=== PATIENT | male | born 1955 | race Caucasian/White ===

== ENCOUNTER 2019-03-30 05:43 | Emergency (ER) | payer MEDICARE ==
[~2019-03-30] VITALS: Ht 172.7 cm; Wt 93.9 kg
[2019-03-30 06:01] LABS: BASOPHILS ABSOLUTE AUTO 0.06 K/mm3 (0.00-0.23); BASOPHILS PERCENT AUTO 1 % (0-2); EOSINOPHILS ABSOLUTE AUTO 0.04 K/mm3 (0.00-0.68); EOSINOPHILS PERCENT AUTO 1 % (0-6); Hematocrit 39.1 % (37.0-53.0); Hemoglobin 13.3 g/dL (13.5-17.5); IMMATURE GRAN ABSOLUTE AUTO 0.02 K/mm3 (0.00-0.10); IMMATURE GRAN PERCENT AUTO 0 % (0-1); LYMPHOCYTES ABSOLUTE AUTO 1.91 K/mm3 (0.84-5.20); LYMPHOCYTES PERCENT AUTO 30 % (21-46); MONOCYTES ABSOLUTE AUTO 0.86 K/mm3 (0.16-1.47); MONOCYTES PERCENT AUTO 14 % (4-13); Mean Corpuscular HGB 29.6 pg (26.0-34.0); Mean Corpuscular Volume 87 fL (80-100); Mean Platelet Volume 11.9 fL (9.1-12.4); NEUTROPHILS ABSOLUTE AUTO 3.46 K/mm3 (1.96-9.15); NEUTROPHILS PERCENT AUTO 55 % (41-73); Platelet Count 172 K/mm3 (150-400); RDW Coefficient Variation 12.1 % (11.7-14.2); RDW Standard Deviation 38.9 fL (35.1-46.3); Red Blood Cell Count 4.49 M/mm3 (4.30-5.90); White Blood Cell Count 6.35 K/mm3 (4.00-11.30)
[2019-03-30] MEDS ORDERED: Tylenol325 MG PO (06:03)
[2019-03-30] MEDS ORDERED: Aspir 8181 MG PO (06:03)
[2019-03-30] MEDS ORDERED: DOCU100 PO (06:03)
[2019-03-30] MEDS ORDERED: CLOP75 PO (06:03)
[2019-03-30] MEDS ORDERED: FURO20 PO (06:03)
[2019-03-30] MEDS ORDERED: LISI20 PO (06:04)
[2019-03-30] MEDS ORDERED: Hair, Skin & N1 EACH PO (06:04)
[2019-03-30] MEDS ORDERED: Lopressor 25 mg25 MG PO (06:04)
[2019-03-30] MEDS ORDERED: SENNA PO (06:05)
[2019-03-30] MEDS ORDERED: POTA10T PO (06:05)
[2019-03-30] MEDS ORDERED: Pravachol40 MG PO (06:05)
[2019-03-30 06:20] LABS: Alanine Aminotransfer (ALT/SGP 29 U/L (12-78); Albumin, Blood 3.7 g/dL (3.4-5.0); Albumin/Globulin Ratio 1.1 (0.8-1.8); Alk Phos 67 U/L (50-136); Anion Gap 5 mmol/L (6-16); Aspartate Aminotrans (AST/SGOT 26 U/L (12-37); Bilirubin, Total 1.4 mg/dL (0.1-1.0); Blood Urea Nitrogen 18 mg/dL (8-24); Bun/Creatinine Ratio 20.9 (12.0-20.0); CO2, Blood 29 mmol/L (21-32); Calcium, Blood 8.9 mg/dL (8.5-10.1); Chloride, Blood 99 mmol/L (98-108); Creatinine, Blood 0.86 mg/dL (0.60-1.20); Globulin, Blood 3.3 g/dL (2.2-4.0); Glomerular Filtration Rate >60 (60-); Glucose, Blood 92 mg/dL (70-99); Potassium, Blood 3.6 mmol/L (3.5-5.5); Sodium, Blood 133 mmol/L (136-145)
== END 2019-03-30 10:43 | disposition home or self-care (01) ==
LOC: ER 05:43
PROVIDERS: Emergency Medicine
DX: F41.9 Anxiety disorder, unspecified (principal); R07.89 Other chest pain; G47.00 Insomnia, unspecified; I25.10 Atherosclerotic heart disease of native coronary artery without angina pectoris; F32.9 Major depressive disorder, single episode, unspecified; F43.10 Post-traumatic stress disorder, unspecified; Z85.038 Personal history of other malignant neoplasm of large intestine; Z88.8 Allergy status to other drugs, medicaments and biological substances; Z79.899 Other long term (current) drug therapy; Z79.82 Long term (current) use of aspirin; Z79.02 Long term (current) use of antithrombotics/antiplatelets
CPT/HCPCS: 71046; 80053; 84484; 85025; 93005; 93010; 99285-25; J1200

== ENCOUNTER 2019-04-05 04:18 | Inpatient (IN) | payer MEDICARE ==
[~2019-04-05] VITALS: Ht 172.7 cm; Wt 94.6 kg
[~2019-04-05 04:18] MED LIST: Aspir 8181 MG PO; CLOP75 PO; DOCU100 PO; FURO20 PO; Hair, Skin & N1 EACH PO; LISI20 PO; Lopressor 25 mg25 MG PO; POTA10T PO; Pravachol40 MG PO; SENNA PO; Tylenol325 MG PO
[2019-04-05 04:30] LABS: Chloride (POC) 97 mmol/L (98-108); Creatinine (POC) 1.1 mg/dL (0.8-1.3); Glucose (ISTAT POC) 108 mg/dL (70-99); Hemoglobin (POC) 13.9 g/dL (13.5-17.5); Sodium (POC) 136 mmol/L (135-148); Total CO2 (POC) 30 mmol/L (21-32)
[2019-04-05 04:31] LABS: BASOPHILS ABSOLUTE AUTO 0.04 K/mm3 (0.00-0.23); BASOPHILS PERCENT AUTO 1 % (0-2); EOSINOPHILS ABSOLUTE AUTO 0.06 K/mm3 (0.00-0.68); EOSINOPHILS PERCENT AUTO 1 % (0-6); Hematocrit 41.7 % (37.0-53.0); Hemoglobin 13.7 g/dL (13.5-17.5); IMMATURE GRAN ABSOLUTE AUTO 0.02 K/mm3 (0.00-0.10); IMMATURE GRAN PERCENT AUTO 0 % (0-1); LYMPHOCYTES ABSOLUTE AUTO 1.86 K/mm3 (0.84-5.20); LYMPHOCYTES PERCENT AUTO 29 % (21-46); MONOCYTES ABSOLUTE AUTO 0.86 K/mm3 (0.16-1.47); MONOCYTES PERCENT AUTO 14 % (4-13); Mean Corpuscular HGB 29.5 pg (26.0-34.0); Mean Corpuscular HGB Conc 32.9 g/dL (31.5-36.5); Mean Corpuscular Volume 90 fL (80-100); Mean Platelet Volume 11.9 fL (9.1-12.4); NEUTROPHILS PERCENT AUTO 55 % (41-73); Platelet Count 200 K/mm3 (150-400); RDW Coefficient Variation 12.4 % (11.7-14.2); RDW Standard Deviation 40.5 fL (35.1-46.3); Red Blood Cell Count 4.64 M/mm3 (4.30-5.90); White Blood Cell Count 6.34 K/mm3 (4.00-11.30)
[2019-04-05] MEDS ORDERED: DIAZ10 PO (04:34)
[2019-04-05 04:51] LABS: Alanine Aminotransfer (ALT/SGP 29 U/L (12-78); Albumin, Blood 3.6 g/dL (3.4-5.0); Alk Phos 67 U/L (50-136); Anion Gap 6 mmol/L (6-16); Aspartate Aminotrans (AST/SGOT 24 U/L (12-37); Bilirubin, Total 0.9 mg/dL (0.1-1.0); Blood Urea Nitrogen 21 mg/dL (8-24); Bun/Creatinine Ratio 18.6 (12.0-20.0); CO2, Blood 29 mmol/L (21-32); Calcium, Blood 8.9 mg/dL (8.5-10.1); Chloride, Blood 102 mmol/L (98-108); Creatinine, Blood 1.13 mg/dL (0.60-1.20); Globulin, Blood 3.6 g/dL (2.2-4.0); Glomerular Filtration Rate >60 (60-); Glucose, Blood 104 mg/dL (70-99); Potassium, Blood 4.1 mmol/L (3.5-5.5); Sodium, Blood 137 mmol/L (136-145); Total Protein, Blood 7.2 g/dL (6.4-8.2); Troponin I 0.021 ng/mL (0.000-0.040)
[2019-04-05 06:49] LABS: Cholesterol 174 mg/dL (50-200); HDL Cholesterol 58 mg/dL (>39); LDL/HDL RATIO 1.6; Low Density Lipoprotein Chol 94 mg/dL (0-110); Triglycerides 109 mg/dL (30-160); Very Low Density Lipoprot Chol 21 mg/dL (6-32)
--- NOTE | 2019-04-05 11:00 | NUR ---
PT STATES FEELS SAME WEAKNESS BEFORE, BUT IT CONTINUES. PT STATES SOME SWEATINESS., LIGHTLY NOTICABLE ON FORARMS. TURNED HEAT DOWN SOME. PT AMBULATED TO BATHROOM TO URINATE. DID WELL. SBA. FWW. VSS, TELE CONTINUES AFIB IN LOW 60'S. PT ADMITS TO LIGHT MIDSTERNAL PAIN. IS REPRODUCABLE WITH RUBBING TO INTERCONSTAL MUSCLES IN MID CHEST. PT STATES MIGHT EVEN BE STOMACH ACID. SPOKE TO DR CASH. ORDERS FOR GI COCTAIL Q6P. WILL ADMIN WHEN HERE FROM PHARMACY.
--- NOTE | 2019-04-05 11:00 | NUR ---
ASKED PT THIS AM RE WH[facility] AT [facility]. PT IS NOT WANTING TO DISCUSS. GAVE A LOT OF WELL, DONT WANT TO DISCUSS AT THIS TIME. HAS BANDAIDE ON LEFT WRIST. DID NOT WANT TO TAKE OFF SMALL BANDAGE. CDI AT THIS TIME. PT REMAINS ANXIOUS.
[2019-04-05] MEDS ORDERED: BACI500TO TOP (11:19)
[2019-04-05] MEDS ORDERED: DULO60 PO (11:23)
[2019-04-05] MEDS ORDERED: GABA300 PO (11:24)
[2019-04-05] MEDS ORDERED: MAGNESIUM OXID500 MG PO (11:25)
[2019-04-05] MEDS ORDERED: MELA3 PO (11:26)
[2019-04-05] MEDS ORDERED: QUET25 PO (11:30)
[2019-04-05] MEDS ORDERED: SENN187 PO (11:31)
[2019-04-05] MEDS ORDERED: TRIA15CR3 TOP (11:32)
--- NOTE | 2019-04-05 11:37 | NUR ---
SOME NEW MEDS FROM [facility] LIST , IS UPDATED IN MED REC. DR HALL.
--- NOTE | 2019-04-05 12:19 | NUR ---
PT TROPONIN LEVELS BACK. INCREASE NOTED. SPOKE TO DR CASH. NO ORDERS AT THIS TIME.
--- NOTE | 2019-04-05 12:26 | NUR ---
PT STATES THE GI COCTAIL HELPED SOME. NOTIFIED IN [facility].
--- NOTE | 2019-04-05 14:09 | NUR ---
Upon receiving an admit referral for spiritual care, I visited patient. Patient openly shares about his family unit complications, his suicide attempt and his current medical conditions. Patient also shares about his faith beliefs and places where he finds hope and inspiration. I listen empathically, normalize patient experience, explore faith beliefs and sources of dignity and meaning and provide companionship. Patient responds well and voices appreciation for the visit.
--- NOTE | 2019-04-05 14:23 | NUR ---
PT STATES NO REAL PAIN, IS ANX. REQUEST IF CAN HAVE ANYTHING. CALLING
--- NOTE | 2019-04-05 18:27 | NUR ---
PT PLEASANT COOP TODAY. PT C/O ANXIETY. PT HAD EPISODE OF PN THAT HE THOUGHT MIGHT BE HEARTBURN. GI COCTAIL GIVEN. PT STATED HELPED SOME. PT HAD SOME ANXIETY TODAY. MEDS GIVEN, AND APPEARS MORE RELAXED. DR ALCAZAR CAME TO SEE PT FOR CARDIAC. CHEST PN. PT DENIES AT THIS TIME. DR TO DO ANGIO TOMORROW EXPECTING AM. ORDERS PLACED FOR NPO MIDNITE, HOLD LOVENOX FOR TOMORROW. EXPECT RECOVERY FROM ANGIO IN PCU. BED IN LOW POSITION, CALL LITE IN REACH, CALLS APPROP
--- NOTE | 2019-04-06 06:20 | NUR ---
SHIFT SUMMARY NO ACUTE EVENTS OVERNIGHT. PATIENT SLEPT THROUGHOUT NIGHT. TELEMETRY CALLED ON 3 OCCASIONS STATING THAT PATIENT HAD 3.1-3.2 SECOND PAUSES. NOTIFIED KOHINOOR OPERATOR HOSPITALIST. PATIENT ASYMPTOMATIC. AAOX4. UP INDEPENDENT IN ROOM. 2L NC FOR COMFORT. WILL CONTINUE TO MONITOR.
--- NOTE | 2019-04-06 08:25 | NUR ---
PATIENT DID NOT EAT BREAKFAST THIS SHIFT DUE TO BEING NPO AT THIS TIME. RN NOTIFIED.
[2019-04-06 08:46] LABS: BASOPHILS ABSOLUTE AUTO 0.03 K/mm3 (0.00-0.23); BASOPHILS PERCENT AUTO 0 % (0-2); EOSINOPHILS ABSOLUTE AUTO 0.03 K/mm3 (0.00-0.68); EOSINOPHILS PERCENT AUTO 0 % (0-6); Hemoglobin 14.7 g/dL (13.5-17.5); IMMATURE GRAN ABSOLUTE AUTO 0.03 K/mm3 (0.00-0.10); IMMATURE GRAN PERCENT AUTO 0 % (0-1); LYMPHOCYTES ABSOLUTE AUTO 1.37 K/mm3 (0.84-5.20); LYMPHOCYTES PERCENT AUTO 17 % (21-46); MONOCYTES PERCENT AUTO 9 % (4-13); Mean Corpuscular HGB 29.2 pg (26.0-34.0); Mean Corpuscular HGB Conc 32.7 g/dL (31.5-36.5); Mean Corpuscular Volume 89 fL (80-100); Mean Platelet Volume 11.7 fL (9.1-12.4); NEUTROPHILS ABSOLUTE AUTO 5.77 K/mm3 (1.96-9.15); NEUTROPHILS PERCENT AUTO 73 % (41-73); Platelet Count 206 K/mm3 (150-400); RDW Coefficient Variation 12.4 % (11.7-14.2); RDW Standard Deviation 40.7 fL (35.1-46.3); Red Blood Cell Count 5.04 M/mm3 (4.30-5.90); White Blood Cell Count 7.93 K/mm3 (4.00-11.30)
[2019-04-06 09:01] LABS: Anion Gap 3 mmol/L (6-16); Blood Urea Nitrogen 16 mg/dL (8-24); Bun/Creatinine Ratio 15.5 (12.0-20.0); CO2, Blood 32 mmol/L (21-32); Calcium, Blood 8.7 mg/dL (8.5-10.1); Chloride, Blood 102 mmol/L (98-108); Creatinine, Blood 1.03 mg/dL (0.60-1.20); Glomerular Filtration Rate >60 (60-); Glucose, Blood 101 mg/dL (70-99); Potassium, Blood 4.8 mmol/L (3.5-5.5); Sodium, Blood 137 mmol/L (136-145)
--- NOTE | 2019-04-06 10:06 | NUR ---
PT HAS BEEN A/O X 4 THIS MORNING WITH NO C/O PAIN. HE DENIES CHEST PAIN OR SOB. HE HAS O2 @ 2 LPM ON FOR COMFORT. Sighter REPORTS A RHYTHM OF A-FIB @ 85. PT IS UP WITH A FWW AB SUNNI IN HIS ROOM. HE IS SCHEDULED FOR AN ANGIOGRAM THIS MORNING AND IS PLEASANT AND COOPERATIVE WITH HIS CARE. HE HAS BEEN NPO SINCE MIDNIGHT PER COMMERCIAL PLUMBER REPORT. NURSES FROM THE [facility] CAME TO TRANSPORT PT AND HE WILL GO TO PCU 6 AFTER HIS PROCEDURE.
--- NOTE | 2019-04-06 10:22 | NUR ---
Face to face report received from Demarco Edwards at this time. The pt has gone for an angiogram in the heart center.
--- NOTE | 2019-04-06 12:45 | NUR ---
ARRIVAL TO UNIT PT ARRIVED VIA GURNEY FROM THE [facility]ART CENTER AT 1230 HRS, POST ANGIOGRAM PROCEDURE. ANGIO SITE TO RT GROIN WNL COVERED BY TRANSPARENT DRESSING WITH JUANPABLO PAD VISIBLE. NO NEW SWELLING, REDNESS TO SITE, PT DENIES TENDRNESS. VITALS SIGNS TAKEN PER UNIT PROTOCOL, SITE REMAINS WNL. PT C/O ANXIOUS, WILL MEDICATE PER EMAR.
--- NOTE | 2019-04-06 13:16 | NUR ---
Pt. is doing fine in bed resting.
[2019-04-06] MEDS ORDERED: Nitroglycerin0.4 MG SL (16:27)
--- NOTE | 2019-04-06 17:00 | NUR ---
Dr. Wallis here to see the patient; the pt is requesting a second opinion from a different diesel engine engineer; however, there is none available in the hospital at this time. Dr. Wallis speaking with Dr. Alonso over the phone at this time. Call from the AOD with regard to transferring the patient back to the [facility], as he was a psychiatric inpatient when he was transferred to [facility] for chest pain. AOKim states that the [place] hospitalist says that they don't want to receive him until tomorrow because he had an angiogram today with a groin site. I expained to the AOD that the pt is 5 hours post sheath removal and the groin site is completely recovered, and that he is actually able to go home, except that he was an inpatient at [facility] so we are asking about transferring him back for his psychiatric inpatient. I asked the AOD to explain to the hospitalist that the pt was simply an angiogram without any interventions, no PCI. In the case of angiogram with PCI, he would be kept overnight and discharged tomorrow. RANJIT said that he would speak with his hospitalist and get back to us.
--- NOTE | 2019-04-06 17:15 | NUR ---
DOCTOR TO ROOM DOCTOR VICK VISITED PATIENT IN HIS ROOM, PATIENT ASKED FOR PERSONAL CONSULT
--- NOTE | 2019-04-06 18:08 | NUR ---
Call from [place] AOD; states that Dr. John (hospitalist) does not accept the pt for transfer this evening. Decision to transfer to [facility] for continued psychiatric treatment will be delayed until tomorrow, and the process will be restarted first thing in the morning.
--- NOTE | 2019-04-06 19:29 | NUR ---
SHIFT SUMMARY ASSUMED CARE OF PATIENT POST ANGIOGRAM AT AROUND 1230, PATIENT ARRIVED VIA GURNEY FROM [facility] [place], ALERT AND ORIENTED, TRANSFERRED TO UNIT HOSP BED BY SLIP SHEET WITH HELP OF 4 STAFF. ANGIO SITE AT ARRIVAL INTACT, NO BLEEDING, NO EXTRA REDNESS, NO SWELLING, NO TENDERNESS BEYOND NORMAL LIMITS. PATIENT CARE MANAGED VIA UNIT PROTOCOL, ALL VITAL SIGNS STABLE AND SITE REMAINED W/IN NORMAL LIMITS THE SHIFT PROGRESSED. AT 4.5 HOURS POST PROCEDURE PATIENT WAS ABLE TO STAND WITHOUT INCIDENT, AND IS CLEARED TO MOVE ABOUT ROOM AT WILL. EXPECT DISCHARGE TOMORROW. PATIENT C/O ANXIETY 3 TIMES THIS SHIFT, AND WAS MEDICATED FOR EACH PER EMAR AND MD ORDER TO THE PATIENT'S STATED SATISFACTION. PASSED REPORT AND CARE TO ONCOMING SHIFT AT 1900, PT AWAKE SITTING AT SIDE OF BED.
--- NOTE | 2019-04-07 06:18 | NUR ---
SHIFT SUMMARY PT HAS REMAINED AOX4 THROUGHOUT SHIFT. VSS. PLEASANT AND COOPERATIVE WITH CARE. SOME ANXIETY NOTED WITH CURRENT DIAGNOSIS OF A-FIB, REPORTS CONCERN THAT HE IS NOT BEING CARDIOVERTED. PT EDUCATED EXTENSIVELY ON RATIONALLE BEHIND DECISION TO NOT PERFORM CARDIOVERSION. PT CONTINUES TO AMBULATE WITH STANDBY ASSIST W/FWW. R GROIN SITE HAS REMAINED UNCHANGED THROUGHOUT THE NIGHT, THOUGH PATIENT DOES CONTINUE TO REPORT SOME DISCOMFORT TO PUNCTURE SITE. PT DID REPORT SOME DISCOMFORT TO R SHOULDER AND NECK LAST NIGHT THAT DECREASED WITH ORDERED MEDICATIONS- NO CHANGES NOTED TO ECG. HEART RHYTHM REMAINS IN ATRIAL FIBRILLATION WITH A RATE IN THE 90s- HR INCREASES WITH ACTIVITY. PT ABLE TO TOTER RESTROOM AND BATHE HIMSELF LAST NIGHT WITH MINIMAL DIFFICULTY. NO OTHER CHANGES NOTED FROM INTIAL ASSESSMENT. WILL CONTINUE TO MONITOR AND REPORT TO ONCOMING SHIFT RN. BED IN LOW POSITION, CALL LIGHT IN REACH.
--- NOTE | 2019-04-07 07:37 | NUR ---
ASSUMED CARE: PT RESTING IN BED AT THIS TIME. NO ACUTE NEEDS OR CONCERNS.
[2019-04-07 08:44] LABS: BASOPHILS ABSOLUTE AUTO 0.06 K/mm3 (0.00-0.23); BASOPHILS PERCENT AUTO 1 % (0-2); EOSINOPHILS ABSOLUTE AUTO 0.04 K/mm3 (0.00-0.68); EOSINOPHILS PERCENT AUTO 1 % (0-6); Hematocrit 49.3 % (37.0-53.0); Hemoglobin 16.4 g/dL (13.5-17.5); IMMATURE GRAN ABSOLUTE AUTO 0.03 K/mm3 (0.00-0.10); IMMATURE GRAN PERCENT AUTO 0 % (0-1); LYMPHOCYTES PERCENT AUTO 22 % (21-46); MONOCYTES ABSOLUTE AUTO 0.81 K/mm3 (0.16-1.47); MONOCYTES PERCENT AUTO 11 % (4-13); Mean Corpuscular HGB 29.6 pg (26.0-34.0); Mean Corpuscular HGB Conc 33.3 g/dL (31.5-36.5); Mean Corpuscular Volume 89 fL (80-100); Mean Platelet Volume 11.6 fL (9.1-12.4); NEUTROPHILS ABSOLUTE AUTO 5.08 K/mm3 (1.96-9.15); NEUTROPHILS PERCENT AUTO 66 % (41-73); Platelet Count 219 K/mm3 (150-400); RDW Coefficient Variation 12.3 % (11.7-14.2); RDW Standard Deviation 40.9 fL (35.1-46.3); Red Blood Cell Count 5.54 M/mm3 (4.30-5.90); White Blood Cell Count 7.72 K/mm3 (4.00-11.30)
[2019-04-07 09:01] LABS: Anion Gap 5 mmol/L (6-16); Blood Urea Nitrogen 17 mg/dL (8-24); Bun/Creatinine Ratio 16.8 (12.0-20.0); CO2, Blood 32 mmol/L (21-32); Calcium, Blood 9.1 mg/dL (8.5-10.1); Chloride, Blood 100 mmol/L (98-108); Creatinine, Blood 1.01 mg/dL (0.60-1.20); Glomerular Filtration Rate >60 (60-); Glucose, Blood 112 mg/dL (70-99); Potassium, Blood 4.4 mmol/L (3.5-5.5); Sodium, Blood 137 mmol/L (136-145)
--- NOTE | 2019-04-07 12:33 | NUR ---
DR GARZA CAME TO SEE PT AND DECIDED TO HOLD DC SO HE COULD TRY TO CONVERT PT FROM AFIB. WANTS TO START PT ON RATE MED AND ANTICOAGULATION. [facility]PITALIST HAVE BEEN NOTIFIED OF HOLD OF DISCHARGE. ANNEMARIE CALLED TO GET GI RECORDS. DR GARZA STATES HE WILL CONTACT [employer] INSTRUCTOR BUILDING SERVICES ENGINEER FOR WEEKEND. POWERHOUSE ELECTRICIAN AWARE
--- NOTE | 2019-04-07 18:32 | NUR ---
SHIFT SUMMARY: PT RESTING QUIETLY IN BED AT THIS TIME. REMAINS IN AFIB AFTER FIRST DOSE OF SATALOL. DR GARZA AWARE, EXPECTS A FEW MORE DOSES NEEDED BEFORE IT CONVERTS HIM. DR AWARE THAT RECORDS REGARDING GI BLEED AND CARDIOLOGY ARRIVED. STATES HE WILL REVIEW IN AM. PLAN IS FOR POSSIBLE PETRA IF SATALOL DOES NOT IMPROVE AFIB. NO FURTHER NEEDS OR CONCERNS AT THIS TIME.
--- NOTE | 2019-04-08 06:26 | NUR ---
SHIFT SUMMARY PT HAS REMAINED AOX4 THROUHGOUT SHIFT. VSS. PLEASANT AND COOPERATIVE WITH CARE. HEART RHYTHM REMAINS IN A-FIB WITH A RATE CONTROLLED IN THE 80-90s. PT WITH NO REPORTS OF CHEST PAINS OR DYSPNEA. DOES REPORT SOME LIGHTHEADEDNESS WITH AMBULATION WHILE IN A-FIB. PT SEEN BY DR GARZA YESTERDAY WHO STARTED ANTIARRHYTHMIC MEDICATION AND XARELTO TO SEE IF PT WOULD CONVERT. IF NO SUCCESS, MAY CONSIDER PETRA AND CARDIOVERSION. PT EDUCATED ON THIS PLAN OF CARE MULTIPLE TIMES THROUGHOUT SHIFT, CONTINUES TO ASK WHAT TIME PROVIDER WILL BE DOING PROCEDURE TODAY. PT HAS BEEN NPO SINCE MIDNIGHT DUE TO POSSIBILITY OF PETRA AND CARDIOVERSION THIS AM. PREVIOUS SHIFT RN STATED HE WAS TO BE NPO @ [place]. PT CONTINUES TO HAVE ANXIETY ABOUT CURRENT HEALTH STATUS AND A-FIB, PT DID NOT WANT ORDERED MEDICATION SEROQUEL FOR ANXIETY DUE TO "HOW IT MAKES HIM FEEL". PT PROVIDED WITH WRITTEN INFORMATION ON NEW MEDICATIONS. NO OTHER CHANGES NOTED FROM INITIAL ASSESSMENT. WILL CONTINUE TO MOINTOR AND REPORT TO ONCOMING SHIFT RN. BED IN LOW POSITION, CALL LIGHT IN REACH.
[2019-04-08 08:19] LABS: BASOPHILS ABSOLUTE AUTO 0.03 K/mm3 (0.00-0.23); BASOPHILS PERCENT AUTO 1 % (0-2); EOSINOPHILS ABSOLUTE AUTO 0.07 K/mm3 (0.00-0.68); EOSINOPHILS PERCENT AUTO 1 % (0-6); Hematocrit 44.4 % (37.0-53.0); Hemoglobin 14.7 g/dL (13.5-17.5); IMMATURE GRAN ABSOLUTE AUTO 0.01 K/mm3 (0.00-0.10); IMMATURE GRAN PERCENT AUTO 0 % (0-1); LYMPHOCYTES ABSOLUTE AUTO 1.43 K/mm3 (0.84-5.20); LYMPHOCYTES PERCENT AUTO 24 % (21-46); MONOCYTES ABSOLUTE AUTO 0.76 K/mm3 (0.16-1.47); MONOCYTES PERCENT AUTO 13 % (4-13); Mean Corpuscular HGB 29.5 pg (26.0-34.0); Mean Corpuscular HGB Conc 33.1 g/dL (31.5-36.5); Mean Corpuscular Volume 89 fL (80-100); Mean Platelet Volume 11.5 fL (9.1-12.4); NEUTROPHILS ABSOLUTE AUTO 3.68 K/mm3 (1.96-9.15); NEUTROPHILS PERCENT AUTO 62 % (41-73); Platelet Count 202 K/mm3 (150-400); RDW Coefficient Variation 12.5 % (11.7-14.2); RDW Standard Deviation 40.8 fL (35.1-46.3); Red Blood Cell Count 4.99 M/mm3 (4.30-5.90); White Blood Cell Count 5.98 K/mm3 (4.00-11.30)
[2019-04-08 08:37] LABS: Anion Gap 3 mmol/L (6-16); Blood Urea Nitrogen 20 mg/dL (8-24); CO2, Blood 32 mmol/L (21-32); Calcium, Blood 8.5 mg/dL (8.5-10.1); Chloride, Blood 101 mmol/L (98-108); Creatinine, Blood 1.05 mg/dL (0.60-1.20); Glomerular Filtration Rate >60 (60-); Glucose, Blood 101 mg/dL (70-99); Potassium, Blood 4.1 mmol/L (3.5-5.5); Sodium, Blood 136 mmol/L (136-145)
--- NOTE | 2019-04-08 10:01 | NUR ---
PT HAD 7 BEAT RUN VTACH NOTIFIED DR ARCINIEGA AND DR GARZA.
--- NOTE | 2019-04-08 18:52 | NUR ---
SUMMARY NO ACUTE CHANGES T/O SHIFT. MEDICATED PT PER ORDERS FOR PAIN. PLAN TO CONTINUE SOTALOL. IF DOES NOT CONVERT TO SR, TENTATIVE PLAN FOR PETRA W/CARDIOVERT ON WEDNESDAY AM W/DR GARZA. USES CALL LIGHT APPROPRIATELY.
[2019-04-09 04:17] LABS: BASOPHILS ABSOLUTE AUTO 0.05 K/mm3 (0.00-0.23); BASOPHILS PERCENT AUTO 1 % (0-2); EOSINOPHILS ABSOLUTE AUTO 0.11 K/mm3 (0.00-0.68); EOSINOPHILS PERCENT AUTO 2 % (0-6); Hematocrit 42.1 % (37.0-53.0); Hemoglobin 13.7 g/dL (13.5-17.5); IMMATURE GRAN ABSOLUTE AUTO 0.02 K/mm3 (0.00-0.10); IMMATURE GRAN PERCENT AUTO 0 % (0-1); LYMPHOCYTES ABSOLUTE AUTO 2.56 K/mm3 (0.84-5.20); LYMPHOCYTES PERCENT AUTO 36 % (21-46); MONOCYTES ABSOLUTE AUTO 0.95 K/mm3 (0.16-1.47); MONOCYTES PERCENT AUTO 13 % (4-13); Mean Corpuscular HGB 29.1 pg (26.0-34.0); Mean Corpuscular HGB Conc 32.5 g/dL (31.5-36.5); Mean Corpuscular Volume 89 fL (80-100); Mean Platelet Volume 12.3 fL (9.1-12.4); NEUTROPHILS ABSOLUTE AUTO 3.45 K/mm3 (1.96-9.15); NEUTROPHILS PERCENT AUTO 48 % (41-73); Platelet Count 207 K/mm3 (150-400); RDW Coefficient Variation 12.4 % (11.7-14.2); RDW Standard Deviation 40.5 fL (35.1-46.3); Red Blood Cell Count 4.71 M/mm3 (4.30-5.90); White Blood Cell Count 7.14 K/mm3 (4.00-11.30)
[2019-04-09 04:43] LABS: Anion Gap 3 mmol/L (6-16); Blood Urea Nitrogen 21 mg/dL (8-24); Bun/Creatinine Ratio 18.3 (12.0-20.0); CO2, Blood 31 mmol/L (21-32); Calcium, Blood 8.2 mg/dL (8.5-10.1); Chloride, Blood 102 mmol/L (98-108); Creatinine, Blood 1.15 mg/dL (0.60-1.20); Glomerular Filtration Rate >60 (60-); Glucose, Blood 102 mg/dL (70-99); Potassium, Blood 3.8 mmol/L (3.5-5.5); Sodium, Blood 136 mmol/L (136-145)
--- NOTE | 2019-04-09 05:37 | NUR ---
SHIFT SUMMARY PT HAS REMAINED AOX4 THROUGHOUT SHIFT. VSS. PLEASANT AND COOPERATIVE WITH CARE. HEART RHYTHM REMAINS IN A-FIB WITH A RATE RANGING IN THE 50-60s. PT WITH 3 PAUSES, ALL APPROXIMATELY LASTING 3 SECONDS- PT SLEEPING AT THE TIME WITH NORMAL BREATHING PATTERNS. PT WITH ONE 10-BEAT RUN OF V-TACH THIS AM WHILE SLEEPING. NO SIGNS OF DISTRESS, VITAL SIGNS REMAINED STABLE. PT HAS RESTED WELL THROUGHOUT THE NIGHT, WAKING EASILY FOR CARE. DENIES CHEST PAIN. MEDICATED MULTIPLE TIMES FOR PAIN TO R SHOULDER AND NECK THAT DECREASED WITH ORDERED MEDICATIONS. PT CONTINUES TO AMBULATE INDEPENDENTLY IN THE ROOM WITHOUG DIFFICULTY. NO OTHER CHANGES NOTED FROM INITIAL ASSESSMENT. WILL CONTINUE TO MONITOR AND REPORT TO ONCOMING SHIFT RN. BED IN LOW POSITION, CALL LIGHT IN REACH.
--- NOTE | 2019-04-09 07:30 | NUR ---
ASSUMED CARE: PT RESTING QUIETLY AT THIS TIME. DENIES NEEDS OR CONCERNS.
--- NOTE | 2019-04-09 09:30 | NUR ---
DR GARZA CAME TO SEE PT. STATES HE IS INCREASING SOTALOL ORDER. AWARE THAT PT HAD PAUSES, VTACH AND BRADYCARDIA OVERNIGHT. DRESSING TO RIGHT GROIN REMOVED AND REPLACED WITH BANDAID. NO FURTHER NEEDS OR CONCERNS AT THIS TIME.
--- NOTE | 2019-04-09 18:41 | NUR ---
SHIFT SUMMARY: PT RESTING IN BED AT THIS TIME. AFIB/FLUTTER WITH HR IN 70S THIS SHIFT. PLAN IS FOR PETRA IN AM TO CARDIOVERT DUE TO PT SYMPTOMATIC WITH AFIB. DENIES NEEDS OR CONCERNS AT THIS TIME.
--- NOTE | 2019-04-10 01:13 | NUR ---
GAVE MAX DOSE OF FENTYNAL DUE TO PT REQUEST
--- NOTE | 2019-04-10 05:48 | NUR ---
SHIFT SUMMARY PT HAS REMAINED AOX4 THROUGHOUT SHIFT. VSS. PLEASANT AND COOPERATIVE WITH CARE. PT CONTINUES TO AMBULATE INDEPENDENTLY TO BATHROOM WITHOUT DIFFICULTY. CARDIAC RHYTHM REMAINS IN A-FIB THROUGHOUT THE NIGHT WITH A RATE IN THE 50-60s. NO ACUTE CARDIAC EVENTS THIS SHIFT. PT DENIES CHEST PAIN AND DYSPNEA. MEDICATED MULTIPLE TIMES FOR PAIN THROUGHOUT THE NIGHT THAT DECREASED WITH ORDERED MEDICATIONS. PT HAS REMAINED NPO SINCE 399 IN ANTICIPATION OF PETRA AND CARDIOVERSION LATER TODAY. NO OTHER CHANGES NOTED FROM INITIAL ASSESSMENT. WILL CONTINUE TO MONITOR AND REPORT TO ONCOMING SHIFT RN. BED IN LOW POSITION, CALL LIGHT IN REACH.
[2019-04-10 08:41] LABS: BASOPHILS ABSOLUTE AUTO 0.03 K/mm3 (0.00-0.23); BASOPHILS PERCENT AUTO 0 % (0-2); EOSINOPHILS ABSOLUTE AUTO 0.08 K/mm3 (0.00-0.68); EOSINOPHILS PERCENT AUTO 1 % (0-6); Hematocrit 40.6 % (37.0-53.0); Hemoglobin 13.2 g/dL (13.5-17.5); IMMATURE GRAN ABSOLUTE AUTO 0.01 K/mm3 (0.00-0.10); IMMATURE GRAN PERCENT AUTO 0 % (0-1); LYMPHOCYTES ABSOLUTE AUTO 2.25 K/mm3 (0.84-5.20); LYMPHOCYTES PERCENT AUTO 32 % (21-46); MONOCYTES ABSOLUTE AUTO 1.11 K/mm3 (0.16-1.47); MONOCYTES PERCENT AUTO 16 % (4-13); Mean Corpuscular HGB 28.9 pg (26.0-34.0); Mean Corpuscular HGB Conc 32.5 g/dL (31.5-36.5); Mean Corpuscular Volume 89 fL (80-100); Mean Platelet Volume 11.9 fL (9.1-12.4); NEUTROPHILS PERCENT AUTO 50 % (41-73); Platelet Count 176 K/mm3 (150-400); RDW Coefficient Variation 12.3 % (11.7-14.2); RDW Standard Deviation 40.4 fL (35.1-46.3); Red Blood Cell Count 4.56 M/mm3 (4.30-5.90); White Blood Cell Count 6.98 K/mm3 (4.00-11.30)
[2019-04-10 09:05] LABS: Anion Gap 4 mmol/L (6-16); Blood Urea Nitrogen 20 mg/dL (8-24); Bun/Creatinine Ratio 17.7 (12.0-20.0); CO2, Blood 32 mmol/L (21-32); Calcium, Blood 8.2 mg/dL (8.5-10.1); Chloride, Blood 101 mmol/L (98-108); Creatinine, Blood 1.13 mg/dL (0.60-1.20); Glomerular Filtration Rate >60 (60-); Glucose, Blood 92 mg/dL (70-99); Potassium, Blood 3.9 mmol/L (3.5-5.5); Sodium, Blood 137 mmol/L (136-145)
--- NOTE | 2019-04-10 11:55 | NUR ---
PT TO HEART [facility]ENTER
--- NOTE | 2019-04-10 12:28 | NUR ---
ONE 200 J SYNCHRONIZED SHOCK WAS DELIVERED - PT TOLERATED PETRA/CARDIOVERSION WELL.
--- NOTE | 2019-04-10 18:15 | NUR ---
SHIFT NOTE PT REPORTS "SOME" CP AND SOB THIS AM THAT HE STS RESOLVED AFTER CARDIOVERSION. PT'S CARDIOVERSION WAS SUCCESSFUL WITH 1 DOSE OF 200J SHOCK, WITH 175MCG PROPOFOL PER HEART CENTER STAFF. PT HAS BEEN CALM AND COOPERATIVE T/O DAY. VSS. NOTED TO BE IN SINUS RHYTHM AT END OF SHIFT.
[2019-04-11 03:56] LABS: BASOPHILS ABSOLUTE AUTO 0.02 K/mm3 (0.00-0.23); BASOPHILS PERCENT AUTO 0 % (0-2); EOSINOPHILS ABSOLUTE AUTO 0.09 K/mm3 (0.00-0.68); EOSINOPHILS PERCENT AUTO 1 % (0-6); Hematocrit 36.9 % (37.0-53.0); Hemoglobin 11.7 g/dL (13.5-17.5); IMMATURE GRAN ABSOLUTE AUTO 0.02 K/mm3 (0.00-0.10); IMMATURE GRAN PERCENT AUTO 0 % (0-1); LYMPHOCYTES ABSOLUTE AUTO 2.11 K/mm3 (0.84-5.20); LYMPHOCYTES PERCENT AUTO 34 % (21-46); MONOCYTES ABSOLUTE AUTO 1.12 K/mm3 (0.16-1.47); MONOCYTES PERCENT AUTO 18 % (4-13); Mean Corpuscular HGB 29.1 pg (26.0-34.0); Mean Corpuscular HGB Conc 31.7 g/dL (31.5-36.5); Mean Platelet Volume 11.9 fL (9.1-12.4); NEUTROPHILS ABSOLUTE AUTO 2.92 K/mm3 (1.96-9.15); NEUTROPHILS PERCENT AUTO 47 % (41-73); Platelet Count 152 K/mm3 (150-400); RDW Coefficient Variation 12.4 % (11.7-14.2); Red Blood Cell Count 4.02 M/mm3 (4.30-5.90); White Blood Cell Count 6.28 K/mm3 (4.00-11.30)
[2019-04-11 03:57] LABS: Mean Corpuscular Volume 92 fL (80-100)
[2019-04-11 04:20] LABS: Magnesium, Blood 2.2 mg/dL (1.6-2.4)
[2019-04-11 04:21] LABS: Anion Gap 4 mmol/L (6-16); Blood Urea Nitrogen 19 mg/dL (8-24); Bun/Creatinine Ratio 16.8 (12.0-20.0); CO2, Blood 31 mmol/L (21-32); Calcium, Blood 8.3 mg/dL (8.5-10.1); Chloride, Blood 101 mmol/L (98-108); Creatinine, Blood 1.13 mg/dL (0.60-1.20); Glomerular Filtration Rate >60 (60-); Glucose, Blood 97 mg/dL (70-99); Potassium, Blood 3.9 mmol/L (3.5-5.5); Sodium, Blood 136 mmol/L (136-145)
--- NOTE | 2019-04-11 06:41 | NUR ---
SHIFT SUMMARY PT HAS REMAINED AOX4 THROUGHOUT SHIFT. VSS. PLEASANT AND COOPERATIVE WITH CARE. PT CONTINUES TO AMBULATE INDEPENDENTLY TO THE RESTROOM WITHOUT DIFFICULTY. MEDICATED ONCE FOR PAIN THAT DECREASED WITH ORDERED MEDICATIONS. PT HAS SLEPT THROUGHOUT MUCH OF THE NIGHT, WAKING EASILY FOR CARE. CARDIAC RHYTHM HAS REMAINED IN SINUS WITH PVCs AND PACs. PT DENIES CP, DYSPNEA, AND DIZZINESS THROUGHOUT NIGHT. NO OTHER CHANGES NOTED FROM INITIAL ASSESSMENT. WILL CONTINUE TO MONITOR AND REPORT TO ONCOMING SHIFT RN. BED IN LOW POSITION, CALL LIGHT IN REACH.
--- NOTE | 2019-04-11 09:19 | NUR ---
I WENT IN TO TALK TO PT REGARDING DISCHARGE ORDERS RECEIVED. LEROY PATIENT ADVOCATE IN WITH PT AT THE TIME. LEROY REPORTS SHE WAS STILL WORKING ON GETTING PT RESOURCES AND PT WAS NOT COMFORTABLE DISCHARGING AT THIS TIME. ATTEMPTED TO CALL DR ARCINIEGA TO LET HIM KNOW. CASH ON DELIVERY CLERK NOTIFIED OF THIS. PT WENT AHEAD AND TRANSFERRED TO ROOM 329 VIA W/C AT 0915. UPDATE CALLED TO WILLIE NASH.
[2019-04-11] MEDS ORDERED: XARELTO20 MG PO (12:57)
[2019-04-11] MEDS ORDERED: Sotalol80 MG PO (12:58)
[2019-04-11] MEDS ORDERED: GUAI600T33 PO (12:59)
[2019-04-11] MEDS ORDERED: Cymbalta30 MG PO (13:01)
== END 2019-04-11 14:50 | disposition home or self-care (01) | DRG 282 ==
LOC: ER 04:18 → MEDS 04:19 → PCU 04-06 12:30 → MEDS 04-11 08:47 → ENPENDDIS 04-11 11:11 → MEDS 04-11 14:50
PROVIDERS: Emergency Medicine; Family Medicine; Internal Medicine; ADMIT Family Medicine
PROC: 5A2204Z Restoration of Cardiac Rhythm, Single (ICD-10-PCS; principal; 2019-04-10)
PROC: B24BZZ4 Ultrasonography of Heart with Aorta, Transesophageal (ICD-10-PCS; 2019-04-10)
DX: I48.19 Other persistent atrial fibrillation (principal); I21.A1 Myocardial infarction type 2; Z95.1 Presence of aortocoronary bypass graft; I47.2 Ventricular tachycardia; I25.10 Atherosclerotic heart disease of native coronary artery without angina pectoris; Z87.891 Personal history of nicotine dependence; Z79.02 Long term (current) use of antithrombotics/antiplatelets; F43.10 Post-traumatic stress disorder, unspecified; Z95.2 Presence of prosthetic heart valve; I10 Essential (primary) hypertension; E78.5 Hyperlipidemia, unspecified; Z79.82 Long term (current) use of aspirin
CPT/HCPCS: 36415; 71046; 71260; 80047; 80048; 80053; 80061; 83735; 83880; 84484; 85014; 85025; 85379; 92960; 93005; 93010; 93312; 93325; 93455; 96360; 96361; 96372; 99152; 99153; 99285-25; A9270-GY; C1769; G0378; J1644; J1650; J2250; J2704; J3010; J7030; J7120; Q9967